=== PATIENT | male | born 1985 | race Caucasian/White ===

== ENCOUNTER 2021-12-30 09:00 | Outpatient (RCR) | payer BC, SELFPAY | END 2022-11-24 08:19 | disposition home or self-care (01) | PROVIDERS: PCP Internal Medicine; Visit Provider Internal Medicine | DX: F07.81 Postconcussional syndrome (principal); H49.00 Third [oculomotor] nerve palsy, unspecified eye; Z51.89 Encounter for other specified aftercare | CPT/HCPCS: 97110; 97112; 97140; 97163; 97530 ==

== ENCOUNTER 2022-01-28 09:15 | Outpatient (RCR) | payer BC, SELFPAY | END 2022-11-24 08:19 | disposition home or self-care (01) | PROVIDERS: PCP Internal Medicine; Referring Provider Internal Medicine; Visit Provider Orthopaedic Surgery Sports Medicine | DX: M22.2X2 Patellofemoral disorders, left knee (principal); Z51.89 Encounter for other specified aftercare | CPT/HCPCS: 97035; 97110; 97140 ==

== ENCOUNTER 2024-08-31 09:00 | Outpatient (RCR) | payer BC, SELFPAY | END 2024-12-29 23:59 | disposition home or self-care (01) | PROVIDERS: PCP Internal Medicine; Visit Provider Family Medicine | DX: M54.42 Lumbago with sciatica, left side (principal); Z51.89 Encounter for other specified aftercare | CPT/HCPCS: 97035; 97110; 97140; 97161 ==